=== PATIENT | female | born 1955 | race African-American/Black ===

== ENCOUNTER 2018-04-04 22:20 | Inpatient (IN) | payer MEDICAID ==
[~2018-04-04] VITALS: Ht 160 cm; Wt 70.3 kg
[2018-04-04 22:20] VITALS: BP 119/55
--- NOTE | 2018-04-04 22:20 | NUR ---
PATIENT BIB ALS TO ER BED 7.
[2018-04-04] MEDS ORDERED: NACL 0.9% 1,000 ML IV SCH (22:23)
[2018-04-04] MEDS ORDERED: DILTIAZEM 25 MG/5 ML VIAL IVP ONE (22:35)
--- NOTE | 2018-04-04 22:55 | NUR ---
X-Ray at bedside.
[2018-04-04] MEDS ORDERED: NORMODYNE IV (23:02)
[2018-04-04] MEDS ORDERED: CHLO480L1 PO ×2 (23:02)
[2018-04-04] MEDS ORDERED: [UNRECOGNIZED DRUG - CODE] IC (23:02)
[2018-04-04] MEDS ORDERED: HEPA500056 SQ (23:02)
[2018-04-04] MEDS ORDERED: ONDA4SOL IM/IV (23:02)
[2018-04-04] MEDS ORDERED: [UNRECOGNIZED DRUG - CODE] PEG (23:02)
[2018-04-04] MEDS ORDERED: ALBU3SOL83 IH (23:02)
[2018-04-04] MEDS ORDERED: HUM SUBQ (23:02)
[2018-04-04] MEDS ORDERED: ACET-2619 PO (23:02)
[2018-04-04] MEDS ORDERED: D50SYR IV (23:02)
[2018-04-04] MEDS ORDERED: FAMO-90 PEG (23:02)
[2018-04-04] MEDS ORDERED: LANTUS SUBQ (23:02)
[2018-04-04] MEDS ORDERED: POLY15SO48 OP (23:08)
[2018-04-04] MEDS ORDERED: SULF-59 PO (23:08)
[2018-04-04 23:11] LABS: BASOPHILS % (AUTO) 0.3 % (0.0-2.0); HEMATOCRIT 33.9 % (36-48); LYMPHOCYTES # (AUTO) 1.1 K/uL (2.5-16.5); MEAN CORPUSCULAR HEMOGLOBIN 29 pg (27-31); MEAN CORPUSCULAR HGB CONC 33 g/dL (33-37); MONOCYTES # (AUTO) 1.4 K/uL (0.8-1.0); MONOCYTES % (AUTO) 8.4 % (1.7-9.3); NEUTROPHILS % (AUTO) 84.9 % (42.2-75.2); PLATELET COUNT (AUTO) 252 K/uL (140-450); RED BLOOD CELL COUNT(AUTO) 3.86 MIL/uL (4.20-5.40); RED CELL DISTRIBUTION WIDTH 13.9 % (11.6-13.7)
[2018-04-04 23:30] LABS: LYMPHOCYTES % (AUTO) 6.4 % (20.5-51.1); WHITE BLOOD COUNT (AUTO) 16.5 K/uL (4.8-10.8)
[2018-04-04 23:35] LABS: ALBUMIN 2.3 g/dL (3.4-5.0); ANION GAP 14.7 (8-16); CARBON DIOXIDE 25.8 mmol/L (21-32); CREATININE 1.1 mg/dL (0.6-1.3); POTASSIUM 3.5 mmol/L (3.5-5.1); TOTAL BILIRUBIN 0.5 mg/dL (0.0-1.0)
[2018-04-04 23:51] LABS: CKMB RELATIVE INDEX 0.2 (0.0-2.5); CREATINE KINASE MB 2.8 ng/mL (0-3.6)
--- NOTE | 2018-04-05 00:13 | NUR ---
Patient noted to have existing wounds upon arrival to ER. Photos taken of wound and placed in chart. Wound covered with dressing. Physician informed.
--- NOTE | 2018-04-05 00:13 | NUR ---
UA SENT TO LAB
[2018-04-05] MEDS ORDERED: MORPHINE SULFATE 2 MG/ML SYR IVP PRN (00:15)
[2018-04-05] MEDS ORDERED: ONDANSETRON 4 MG/2 ML VIAL IM/IVP PRN (00:15)
[2018-04-05] MEDS ORDERED: DOCUSATE SODIUM 100 MG GELCAP PO PRN (00:15)
[2018-04-05] MEDS ORDERED: ACETAMINOPHEN 325 MG TAB PO PRN (00:15)
[2018-04-05] MEDS ORDERED: HYDROcodone/APAP 5/325 MG 1 TAB TAB PO PRN (00:15)
[2018-04-05] MEDS ORDERED: PNEUMOCOCCAL VACCINE 23 MCG/0.5 ML VIAL IMVAC SCH (00:20)
[2018-04-05] MEDS ORDERED: INFLUENZA VIRUS VACCINE QUAD 0.5 ML SYR IMVAC PRN (00:20)
[2018-04-05 00:21] LABS: APPEARANCE,URINE CLEAR (CLEAR); BILIRUBIN,URINE NEGATIVE (NEGATIVE); BLOOD, URINE 1+ (NEGATIVE); COLOR,URINE YELLOW (YELLOW); LEUKOCYTE ESTERASE ,URINE NEGATIVE (NEGATIVE); NITRITE, URINE NEGATIVE (NEGATIVE); UGLUCOSE NEGATIVE (NEGATIVE)
[2018-04-05 00:29] LABS: HYALINE CASTS, URINE 0-10 /LPF (None Seen); RBC,URINE 0-5 (RARE) /HPF (0-5); WBC,URINE 0-5 (RARE) /HPF (0-5)
[2018-04-05 00:43] LABS: PROTHROMBIN TIME 9.8 secs (10.8-13.4)
[2018-04-05 00:44] LABS: MAGNESIUM 2.1 mg/dL (1.8-2.4); THYROID STIMULATING HORMONE 1.01 uIU/mL (0.34-3.74)
--- NOTE | 2018-04-05 00:55 | NUR ---
ADMITTED PT FROM ER VIA GURNEY. PT IS APHASIC. NO S/S OF PAIN OR SOB. TRACH COLLAR AT 2L/MIN. BEDBOUND. IV TO LEFT AC #18G, PATENT AND INTACT. G-TUBE IN PLACE. PT HAS RECTAL TUBE. SAFETY PRECAUTION IN PLACE.
[2018-04-05 01:00] VITALS: BP 151/53
--- NOTE | 2018-04-05 01:00 | NUR ---
PT HAS STAGE 2 PRESSURE ULCER TO RIGHT BUTTOCK AND SUTURES TO RIGHT HEAD.
--- NOTE | 2018-04-05 01:00 | NUR ---
REPORT GIVEN AND CARE TRANSFERED TO [facility] ROOM 111B. TRANSFERED VIA [facility] WITH V[facility].
[2018-04-05] MEDS ORDERED: PNEUMOCOCCAL VACCINE 23 MCG/0.5 ML VIAL IMVAC PRN (01:01)
[2018-04-05] MEDS: NACL 0.9% 1,000 ML IV SCH (01:13)
[2018-04-05] MEDS ORDERED: HYDRAGUARD CREAM TP PRN (01:40)
[2018-04-05] MEDS ORDERED: hydrALAZINE 25 MG TAB GT PRN (01:40)
[2018-04-05] MEDS ORDERED: ALTEPLASE IC SCH (01:40)
[2018-04-05] MEDS ORDERED: NIMODIPINE 30 MG PEG SCH (01:40)
[2018-04-05] MEDS ORDERED: DEXTROSE 50% 50 ML SYR IVP PRN (02:00)
--- NOTE | 2018-04-05 03:30 | NUR ---
PT RESTING IN BED WITH EYES CLOSED. NO S/S OF PAIN OR SOB. PT KEPT DRY AND COMFORTABLE.
[2018-04-05 04:00] VITALS: BP 152/55
[2018-04-05] MEDS ORDERED: cefTRIAXone 1,000 MG VIAL ONE (04:41)
--- NOTE | 2018-04-05 05:00 | NUR ---
PT SLEEPING. NO S/S OF PAIN OR SOB. PT KEPT DRY AND COMFORTABLE.
[2018-04-05] MEDS: POLYVINYL ALCOHOL 1.4% OP 15 ML SOL BOTH EYES SCH ×3 (06:00→18:36)
--- NOTE | 2018-04-05 06:05 | NUR ---
PT'S O2 SAT WAS 65. INCREASED 02 TO 5L AND CALLED RT. 3 RTS IN THE ROOM. PT'S O2 SAT 98%.
--- NOTE | 2018-04-05 06:10 | NUR ---
CALLED TO PTS ROOM DUE TO PT DESAT RT MICHI Casas AND RT SUGAR Amos AT BEDSIDE CLEANED TRACH DUE TO MUCUS PLUG AND PTS SAT INCREASED PLACED PT ON CA OF 28% AT 6L THEN INCREASED TO 40% at 10 l sxn pt small amt of pale yellow secretions b\s are clear and i\l tx given with duoneb 3ml with no adverse reaction post tx.
[2018-04-05] MEDS: ALBUTEROL SULFATE/IPRATROPIU 3 ML SOL IH PRN (06:17)
--- NOTE | 2018-04-05 06:20 | NUR ---
PT HAS TRACH TO MIST. NO S/SO OF RESP DISTRESS. PT RESTING IN BED COMFORTABLY.
[2018-04-05] MEDS: FAMOTIDINE 20 MG TAB PEG SCH ×2 (06:39→18:36)
--- NOTE | 2018-04-05 06:40 | NUR ---
G-TUBE RESIDUAL 0 ML. HUNG NEW BOTTLE OF JEVITY 1.2 AT 10 ML/HR. INCREASE 10 ML EVERY HR TO REACH GOAL AT 75ML/HR. H20 FLUSH 50 ML Q4HRS.
--- NOTE | 2018-04-05 06:55 | NUR ---
DR. KING MADE AWARE THAT ARTIFICIAL TEARS NOT AVAILABLE. ALSO MADE AWARE PT HAS NO URINE OUTPUT SINCE ADMISSION. NO NEW ORDER AT THIS TIME.
[2018-04-05] MEDS: BLOOD GLUCOSE MONITORING 1 DEV DEV FS SCH ×4 (06:58→20:27)
[2018-04-05] MEDS: INSULIN LISPRO SLIDING SCALE 100 UNITS/ML VIAL SUBQ PRN (07:00)
[2018-04-05 07:15] LABS: BASOPHILS % (AUTO) 0.2 % (0.0-2.0); HEMATOCRIT 34.5 % (36-48); HEMOGLOBIN 11.1 g/dL (12.0-16.0); LYMPHOCYTES # (AUTO) 0.5 K/uL (2.5-16.5); LYMPHOCYTES % (AUTO) 2.7 % (20.5-51.1); MEAN CORPUSCULAR HEMOGLOBIN 29 pg (27-31); MEAN CORPUSCULAR HGB CONC 32 g/dL (33-37); MEAN CORPUSCULAR VOLUME 88.7 fL (80-94); MONOCYTES # (AUTO) 1.2 K/uL (0.8-1.0); MONOCYTES % (AUTO) 6.5 % (1.7-9.3); NEUTROPHILS # (AUTO) 16.3 K/uL (1.8-7.7); NEUTROPHILS % (AUTO) 90.6 % (42.2-75.2); PLATELET COUNT (AUTO) 244 K/uL (140-450); RED BLOOD CELL COUNT(AUTO) 3.89 MIL/uL (4.20-5.40); RED CELL DISTRIBUTION WIDTH 13.9 % (11.6-13.7); WHITE BLOOD COUNT (AUTO) 17.9 K/uL (4.8-10.8)
--- NOTE | 2018-04-05 07:20 | NUR ---
PT TOLERATING FEEDING WELL. ENDORSED PT TO DAY SHIFT NURSE. PT IN STABLE CONDITION.
--- NOTE | 2018-04-05 07:21 | NUR ---
RECEIVED BEDSIDE REPORT FROM ASSISTANT REFINERY OPERATOR NURSE. PATIENT APHASIC. ON TRACH TO AEROSOL MIST AT 6 L, NO SIGNS OF RESPIRATORY DISTRESS. PATIENT BEDBOUND, TOTAL ASSISTANCE NEEDED. WOUNDS ON R BUTTOCKS OPEN TO AIR AND R FOREHEAD SUTURE FROM PRIOR SURGERY. G TUBE IN PLACE, CLEAN DRY AND INTACT. HEARD SWOOSH AND CHECKED RESIDUAL. JEVITY 1.2 RUNNING AT 10. IV ON L AC 18 G INFUSING NS AT 50, CLEAN DRY AND INTACT. PATIENT ON WOUND CARE BED. FALL RISK PROTOCOL IN PLACE. PATIENT ON TELE, SPO2 MONITOR IN PLACE. BED IN LOW POSITION, CALL LIGHT WITHIN REACH. WILL CONTINUE TO MONITOR.
[2018-04-05 07:25] LABS: ANION GAP 14.3 (8-16); CARBON DIOXIDE 25.7 mmol/L (21-32); CREATININE 0.9 mg/dL (0.6-1.3)
[2018-04-05 08:00] VITALS: BP 173/89
--- NOTE | 2018-04-05 08:07 | NUR ---
PATIENT HAS BEEN SCREENED AND CATEGORIZED HIGH NUTRITION RISK. PATIENT WILL BE SEEN WITHIN 1-2 DAYS OF ADMISSION. 04/05/18-04/06/[address]
[2018-04-05] MEDS: LACTOBACILLUS RHAMNOSUS GG 1 EACH CAP GT SCH (08:53)
[2018-04-05] MEDS: FERROUS SULFATE 300 MG/5 ML UDC GT SCH ×2 (08:53→20:29)
[2018-04-05] MEDS: metFORMIN 500 MG TAB GT SCH ×2 (08:54→18:36)
[2018-04-05] MEDS: LABETALOL 100 MG TAB GT SCH ×2 (08:54→20:29)
[2018-04-05] MEDS: BENAZEPRIL 20 MG TAB GT SCH ×2 (08:54→20:29)
[2018-04-05] MEDS: CHLORHEXIDINE GLUCONATE 0.12% 473 ML LIQ MM SCH ×2 (09:00→20:31)
[2018-04-05] MEDS: INSULIN LANTUS 100 UNITS/ML 10 ML VIAL SUBQ SCH (09:00)
[2018-04-05] MEDS ORDERED: ASPIRIN 81 MG TAB.CHEW GT SCH (09:00)
--- NOTE | 2018-04-05 09:10 | NUR ---
PT TO CT SCAN OF HEAD PLACED ON T-PIECE AT 6L HR 80 O2 SAT 100% THEN BACK TO ROOM PLACED BACK 30% CA
--- NOTE | 2018-04-05 09:11 | NUR ---
PATIENT TAKEN TO HAVE CT SCAN WITHOUT CONTRAST. PATIENT ACCOMPANIED BY RT AND 2 IMAGING TECHS. WILL MONITOR WHEN PATIENT GETS BACK.
--- NOTE | 2018-04-05 10:59 | NUR ---
CHANGED PATIENTS SOILED PADS. PATIENT WAS GIVEN BED BATH. LOTION APPLIED. PATIENT WAS TURNED TO OPPOSITE SIDE. NOW LEFT SIDE LYING POSITION. PATIENT TOLERATED WELL. WILL CONTINUE TO MONITOR.
--- NOTE | 2018-04-05 11:42 | NUR ---
04/05/18 RD INITIAL ASSESSMENT COMPLETED PLEASE REFER TO NUTRITION ASSESSMENT UNDER CARE ACTIVITY FOR ESTIMATED NUTRITIONAL NEEDS. 1. RECOMMEND TUBE FEED DIABETISOURCE @ 70 ML/HR X 24 HOURS - THIS WILL PROVIDE 2016 KCALS AND 100 G PROTEIN. THIS MEETS 100% OF ESTIMATED ENERGY AND PROTEIN NEEDS 2. RECOMMEND FLUSH 110 ML Q6H 3. RECOMMEND VITAMIN C 200 MG BID AND THERAGRAN-M 4. RD TO FOLLOW-UP 2-3 DAYS, HIGH RISK TREVOR SRINIVAS[address] RD
[2018-04-05] MEDS ORDERED: DOCUSATE 100 MG/10 ML UDC GT PRN (11:50)
[2018-04-05 12:00] VITALS: BP 185/84
[2018-04-05] MEDS: ACETAMINOPHEN 650 MG/20.3 ML UDC GT PRN ×2 (12:03→20:29)
[2018-04-05] MEDS: CLINDAMYCIN PHOS 600MG/D5W PM 50 ML IV SCH ×2 (12:03→20:31)
--- NOTE | 2018-04-05 12:26 | NUR ---
ADMINISTERED PRN TYLENOL AND HYDRALAZINE FOR TEMP OF 101.4 AND BP OF 185/84. PATIENT TOLERATED WELL. WILL RECHECK VITALS.
[2018-04-05] MEDS ORDERED: ROC2I IV (12:55)
[2018-04-05] MEDS ORDERED: CLIN600P4 IV (12:58)
[2018-04-05] MEDS: HYDRAGUARD CREAM TP SCH (13:00)
--- NOTE | 2018-04-05 13:11 | NUR ---
RECEIVED ORDER FOR TRANSFER TO [facility]. FAXED INQUIRY TO [facility], [phone] PHONE [phone].
--- NOTE | 2018-04-05 15:01 | NUR ---
RECEIVED CALL EARLIER THAT THEY ARE REVIEWING THE INFORMATION. I GAVE ALVARO FROM [facility] THE PHONE NUMBER TO THE FLOOR AND THE PHONE NUMBER TO DR. DE SANTIAGO.
--- NOTE | 2018-04-05 15:13 | NUR ---
SPOKE WITH DR. GUTIERREZ SHE SAID THAT DR. DE SANTIAGO SPOKE WITH THE DONNA AT [facility]. NO TRANSFER NEEDED. PATIENT DOES HAVE A FOLLOW UP APPOINTMENT ON THE OF THIS MONTH. TRANSFER TO [facility] CANCELED.
--- NOTE | 2018-04-05 15:30 | NUR ---
WENT TO SXN PT FOR C&S AND MOTHER IS AT BEDSIDE AND WANTED PT TO REST FOR NOW I TOLD HER I OR NOC RT WOULD COME AND SXN HER LATER. SHE SAID ALRIGHT.
[2018-04-05 16:00] VITALS: BP 180/72
--- NOTE | 2018-04-05 19:30 | NUR ---
RECEIVED BEDSIDE REPORT FROM DAY SHIFT RN, PATIENT IN BED, ON TRAC TO AEROSOL MASK AT 6 L/MIN, PATIENT IS APHASIC UNABLE TO FOLLOW COMMANDS, UNABLE TO MOVE, GTUBE INFUSING JEVITY 1.2 AT 60 ML/HR. IV IN LEFT AC 18 G INFUSING NS AT 50, NOTED RECTAL TUBE IN PLACE. CALL LIGHT WITHIN REACH, WILL GIVE DUE MEDICATIONS.
--- NOTE | 2018-04-05 19:30 | NUR ---
GAVE BEDSIDE REPORT TO WIND FIELD MANAGER NURSE. PATIENT ENDORSED IN STABLE CONDITION.
[2018-04-05 20:00] VITALS: BP 200/88
--- NOTE | 2018-04-05 20:08 | NUR ---
BP 200/88 HR 107-112, SPOKE WITH DR MONTERO. ORDER FOR HYDRALAZINE IVP. WILL ADMINISTER ACCORDING TO ORDER. Addendum: 04/06/18 at 0354 by Brianda Haines RN DR ALANIZ.
--- NOTE | 2018-04-05 20:21 | NUR ---
SPUTUM SAMPLE COLLECTED BRIGHT RED BLOOD NOTED.
--- NOTE | 2018-04-05 20:29 | NUR ---
PATIENT HAS FEVER 103.1 MEDICATED WITH TYLENOL ACCORDING TO ORDER.
[2018-04-05] MEDS: ASCORBIC ACID 500 MG/5 ML ORASYR GT SCH (20:30)
--- NOTE | 2018-04-05 20:35 | NUR ---
SX PT TO COLLECT SPUTUM AND SEND TO THE LAB. SUCTION LARGE BLOODY SECRETION
--- NOTE | 2018-04-05 20:43 | NUR ---
NOTIFIED DR MONTERO REGARDING DARK RED SPUTUM COLLECTED.
[2018-04-05] MEDS ORDERED: hydrALAZINE 20 MG/ML VIAL IVP SCH (21:00)
--- NOTE | 2018-04-05 21:24 | NUR ---
REASSESSED BP 165/80 HR 105 WILL CONTINUE TO MONITOR.
--- NOTE | 2018-04-05 22:45 | NUR ---
REPOSITIONED PATIENT, NOTED SACRAL WOUND, WILL CONTINUE TO MONITOR.
[2018-04-06] VITALS (9 sets, daily range): BP systolic 138–226; BP diastolic 51–95
[2018-04-06] MEDS: POLYVINYL ALCOHOL 1.4% OP 15 ML SOL BOTH EYES SCH ×2 (00:33→05:00)
[2018-04-06] MEDS: HYDRAGUARD CREAM TP SCH ×2 (00:34→12:53)
[2018-04-06] MEDS: NACL 0.9% 1,000 ML IV SCH (00:34)
--- NOTE | 2018-04-06 00:35 | NUR ---
V/S TAKEN NOTED BP 175/67 HR 106 WILL CONTINUE TO MONITOR. R/T NOTED WOUND UNDER TRACHEOSTOMY. WILL TAKE PICTURE.
--- NOTE | 2018-04-06 03:52 | NUR ---
V/S TAKEN NOTED BP 170/80 HR 112. TUBE FEEDINGS CHANGED, INFUSING AT 75 ML/HR, NO RESIDUALS NOTED. PICTURE OF TRACHEOTOMY WOUND TAKEN, WOUND CLEANSED WITH NS, PAT DRY, AND PLACED GAUZED, DR ALANIZ.
[2018-04-06] MEDS: CLINDAMYCIN PHOS 600MG/D5W PM 50 ML IV SCH ×2 (05:00→12:52)
--- NOTE | 2018-04-06 05:00 | NUR ---
PATIENT REPOSITIONED FOR COMFORT, WILL CONTINUE TO MONITOR.
--- NOTE | 2018-04-06 06:12 | NUR ---
BLOOD GLUCOSE 196 WILL MEDICATE ACCORDING TO MD ORDER.
[2018-04-06] MEDS: FAMOTIDINE 20 MG TAB PEG SCH ×2 (06:28→17:04)
[2018-04-06] MEDS: BLOOD GLUCOSE MONITORING 1 DEV DEV FS SCH ×3 (06:29→17:00)
[2018-04-06] MEDS: INSULIN LISPRO SLIDING SCALE 100 UNITS/ML VIAL SUBQ PRN ×3 (06:29→17:26)
[2018-04-06 06:35] LABS: CHOL/HDL RATIO 2.6 (1-4.5)
--- NOTE | 2018-04-06 07:34 | NUR ---
ENDORSED PATIENT TO DAY SHIFT NURSE.
--- NOTE | 2018-04-06 07:36 | NUR ---
RECEIVED BEDSIDE REPORT FROM HYSTER MACHINE OPERATOR RN. PATIENT IN BED, ON TRAC TO AEROSOL MASK AT 6 L/MIN, PATIENT IS APHASIC UNABLE TO FOLLOW COMMANDS, UNABLE TO MOVE, G-TUBE INFUSING JEVITY 1.2 AT 75 ML/HR. IV IN LEFT AC 18 G INFUSING NS AT 50, NOTED RECTAL TUBE IN PLACE. CALL LIGHT WITHIN REACH, WILL GIVE DUE MEDICATIONS.
[2018-04-06 08:25] LABS: FOLIC ACID 12.8 ng/mL (>3.0)
[2018-04-06] MEDS ORDERED: ATORVASTATIN 20 MG TAB PO SCH (09:00)
[2018-04-06] MEDS ORDERED: hydrALAZINE 25 MG TAB GT SCH (09:06)
[2018-04-06] MEDS: METOPROLOL 5 MG/5 ML VIAL IV PRN ×2 (09:07→15:28)
[2018-04-06] MEDS ORDERED: hydrALAZINE 20 MG/ML VIAL IVP SCH (09:30)
--- NOTE | 2018-04-06 09:40 | NUR ---
NOTIFIED OF PT ELEVATED BP. WILL GIVE BP MEDS TO LOWER BP PER DR'S ORDERS.
[2018-04-06] MEDS: FERROUS SULFATE 300 MG/5 ML UDC GT SCH (09:41)
[2018-04-06] MEDS: LABETALOL 100 MG TAB GT SCH (09:42)
[2018-04-06] MEDS: LACTOBACILLUS RHAMNOSUS GG 1 EACH CAP GT SCH (09:42)
[2018-04-06] MEDS: metFORMIN 500 MG TAB GT SCH ×2 (09:43→17:04)
[2018-04-06] MEDS: BENAZEPRIL 20 MG TAB GT SCH (09:43)
[2018-04-06] MEDS: ASCORBIC ACID 500 MG/5 ML ORASYR GT SCH (09:44)
[2018-04-06] MEDS: INSULIN LANTUS 100 UNITS/ML 10 ML VIAL SUBQ SCH (09:46)
[2018-04-06] MEDS: ACETAMINOPHEN 650 MG/20.3 ML UDC GT PRN ×2 (09:47→17:27)
--- NOTE | 2018-04-06 09:47 | NUR ---
PT RUNNING A FEVER OF 101.9. COOLING MEASURES IN PLACE AND TYLENOL GIVEN. WILL REASSESS FOR MED EFFECTIVENESS
[2018-04-06 11:12] LABS: BASOPHILS % (AUTO) 0.1 % (0.0-2.0); HEMATOCRIT 32.9 % (36-48); HEMOGLOBIN 10.6 g/dL (12.0-16.0); LYMPHOCYTES # (AUTO) 1.2 K/uL (2.5-16.5); LYMPHOCYTES % (AUTO) 10.5 % (20.5-51.1); MEAN CORPUSCULAR HEMOGLOBIN 29 pg (27-31); MEAN CORPUSCULAR HGB CONC 32 g/dL (33-37); MEAN CORPUSCULAR VOLUME 88.6 fL (80-94); MONOCYTES % (AUTO) 8.5 % (1.7-9.3); NEUTROPHILS # (AUTO) 9.3 K/uL (1.8-7.7); NEUTROPHILS % (AUTO) 80.9 % (42.2-75.2); PLATELET COUNT (AUTO) 222 K/uL (140-450); RED BLOOD CELL COUNT(AUTO) 3.72 MIL/uL (4.20-5.40); WHITE BLOOD COUNT (AUTO) 11.5 K/uL (4.8-10.8)
[2018-04-06] MEDS ORDERED: LABETALOL 200 MG TAB PO SCH (11:15)
[2018-04-06] MEDS: CHLORHEXIDINE GLUCONATE 0.12% 473 ML LIQ MM SCH (11:25)
[2018-04-06 11:37] LABS: ANION GAP 8.3 (8-16); CARBON DIOXIDE 23.3 mmol/L (21-32); CREATININE 1.1 mg/dL (0.6-1.3); POTASSIUM 3.6 mmol/L (3.5-5.1)
--- NOTE | 2018-04-06 11:40 | NUR ---
ENDORSED PT TO ICU FOR CONTINUITY OF CARE. PT TRANSFERED FOR ELEVATED BP AND NEED FOR HIGHER LEVEL OF CARE.
[2018-04-06 11:41] LABS: MAGNESIUM 2.2 mg/dL (1.8-2.4); PHOSPHORUS 2.2 mg/dL (2.5-4.9)
--- NOTE | 2018-04-06 11:58 | NUR ---
TRANSFERRED PATIENT TO ICU-5 REMOVED FROM COOL AEROSOL AT 40%/10 LPM AND PLACED ON SUPPLEMENTAL OXYGEN AT 6 LPM VIA E-TANK SATURATION 100% HR 101 TOLERATED TRANSFER WELL WITHOUT INCIDENT
--- NOTE | 2018-04-06 12:03 | NUR ---
CM NOTE RECEIVED ORDER FOR TRANSFER FOR HIGHER LEVEL OF CARE. SPOKE WITH ATTENDING PHYSICIAN DR. DE SANTIAGO WHO STATED THAT PATIENT IS MORE LETHARGIC TODAY AND NEEDS TRANSFER FOR HIGHER LEVEL OF CARE. SPOKE WITH WE[facility] OF [facility] PH# [phone] REGARDING THE ORDER FOR HIGHER LEVEL OF CARE AND SHE REQUESTED FOR FACESHEET AND CLINICAL PACKET BE FAXED TO HER. FAXED FACESHEET AND CLINICAL INFORMATION TO [facility] [phone]. PER WEST, DR. GONZÁLES THEIR NEUROSURGEON, CANNOT TAKE PATIENT AND SHE CANNOT GET A NEUROSURGEON TO ACCEPT THE PATIENT BECAUSE THERE HAS TO BE CONTINUITY OF CARE SINCE PATIENT'S MOST RECENT SURGERY WAS DONE AT [facility] PATIENT HAS TO BE SEEN IN [place]. SPOKE WITH ANA OF [facility] PH# [phone] REGARDING THE ORDER FOR HIGHER LEVEL OF CARE AND GAVE HER AN UPDATE ABOUT PATIENT'S CURRENT STATUS. SHE REQUESTED FOR FACESHEET AND CLINICAL PACKET BE FAXED TO HER. FAXED FACESHEET AND CLINICAL PACKET TO [place] [phone]. PER ANA SHE CALLED OUR ATTENDING RESIDENT DR. GUTIERREZ REGARDING AN INQUIRY AND IS WAITING TO HEAR BACK FROM HER. SPOKE WITH RUBENS OF [facility] PH# [phone] AND SHE FAXED US OVER [employer] TRANSFER AGREEMENT PACKET. RUBENS REQUESTED FOR THE FACESHEET, CLINICAL PACKET AND [facility] BE [facility] TO HER. FAXED NATALIE THE REQUESTED INFORMATION [phone].
--- NOTE | 2018-04-06 12:12 | NUR ---
PLACED PATIENT BACK ON A COOL AEROSOL TO TRACH AT 40%/10 LPM
--- NOTE | 2018-04-06 12:13 | NUR ---
RECEIVED PATIENT FROM TELEMETRY, EYES OPEN SPONTANEOUSLY BUT NO TRACKING, WITHDRAWS TO PAIN, NO VERBAL OUTPUT, BOTH PUPILS SLUGGISH 2-3MM, SINUS IN MONITOR 99BPM, WITH TRACHEOSTOMY WITH STOMA A BIT EXTENDING INFERIORLY TOWARDS THE CHEST, ON TRACHEAL MASK FIO2 405 SO2 96%, RONCHI ON ALL LOBES ANTERIOR CHEST, WITH PEG TUBE CONNECTED TO JEVITY 75 ML/HR, CHECKED RESIDUAL 40 ML DARK CREAM COLORED, WITH OLD SUTURE AT RIGHT SIDE OF HEAD, SKIN PEEL SACRAL AREA, GENERALIZED NON PITTING EDEMA, GAUGE 18 PERIPHERAL LINE AT LEFT AC WITH NORMAL SALINE INFUSING
[2018-04-06] MEDS: ALBUTEROL SULFATE/IPRATROPIU 3 ML SOL IH PRN (12:24)
--- NOTE | 2018-04-06 12:24 | NUR ---
SATURATION 100% ON SUPPLEMENTAL OXYGEN AT 40%/10 LPM VIA COOL AEROSOL POST HHN THERAPY AND TRACH CARE TITRATED FIO2 TO 30%/7 LPM DOON/RN NOTIFIED
[2018-04-06] MEDS ORDERED: POLYVINYL ALCOHOL 1.4% OP 15 ML SOL BOTH EYES SCH (12:36)
[2018-04-06] MEDS: hydrALAZINE 25 MG TAB GT SCH ×2 (12:43→17:04)
[2018-04-06] MEDS ORDERED: LEVE1000 IV (13:44)
[2018-04-06] MEDS ORDERED: levETIRAcetam 1,000 MG in NACL 0.9% 100 ML IV SCH ×2 (14:00→21:00)
--- NOTE | 2018-04-06 14:15 | NUR ---
CM NOTE PER ANA OF [facility]# [phone], DR. RICHARDS, THEIR NEUROSURGEON, HAS ACCEPTED THE PATIENT, WAITING FOR BED AVAILABILITY. I GAVE ANA THE NUMBER TO THE NURSING STATION WHERE PATIENT IS IN CASE A BED BECOMES AVAILABLE AT A LATER TIME TODAY. CHARGE NURSE EDDIE ESCOTO.
[2018-04-06] MEDS ORDERED: Hydraguard TP ×2 (14:21→14:26)
[2018-04-06] MEDS ORDERED: TRA100 GT (14:21)
[2018-04-06] MEDS ORDERED: HYDR-4420 GT (14:21)
[2018-04-06] MEDS ORDERED: BENA20TA88 GT (14:24)
[2018-04-06] MEDS ORDERED: METF500T GT (14:26)
[2018-04-06] MEDS ORDERED: METO1SOL22 IV (14:26)
--- NOTE | 2018-04-06 14:54 | NUR ---
SATURATION 100% ON A COOL AEROSOL TO TRACH AT 30%/7 LPM TITRATED FIO2 TO 28%/6 LPM ANJELICA/RN NOTIFIED
--- NOTE | 2018-04-06 16:35 | NUR ---
PM CARE/ SPONGE BATH DONE, LINENS CHANGED, ORACL CARE, PERINEAL CARE DONE AND ROUTINE REPOSITIONING DONE
--- NOTE | 2018-04-06 18:49 | NUR ---
REPORT GIVEN TO [facility] OF [facility] INCLUDING PATIENT'S NEXT OF KIN NUMBER
--- NOTE | 2018-04-06 19:35 | NUR ---
AICHA DEJESUS RN AM SHIFT , PT WILL TRANSFER TO [facility] FOR FURTHER CARE. SHE ALREADY GIVE REPORT TO CLARI.AICHA DEJESUS [facility] WILL COME TO PIPE INSTALLER AT 1945..PT IS OPEN EYES. NOT FOLLOWING COMMANDS. NO S/S OF RESP DISTRESS, NO SOB. PT TRACH TO T.BAR WITH O2 28% TOLERATING WELL. RESP EVEN UN LABOR. HOB UP 30-[address] , ABD SOFT NON DISTENDED. PICS WAS TAKEN BY AM SHIFT. NOTED SUTURE INTACT TO TOP OF HEAD AND REDNESS BILATERAL BUTTOCK,RECTAL TUBE INPLACE.V/S T 99.2,P 91,B/P 143/58 SPO2 95%.PT IS CLEAN AND DRY.
--- NOTE | 2018-04-06 19:42 | NUR ---
REPORT GIVEN TO NIGHT RN. PICTURES TAKEN TO ALL WOUNDS, MRSA AT DISCHARGE SENT TO LABORATORY WITH ORDER PER DR. OLIVERA
--- NOTE | 2018-04-06 20:00 | NUR ---
THE [facility] COME TO ASSOCIATE PROFESSOR OF ART PT AT 1945, [facility] PERSONAL [facility]. REPORT GIVEN TO [facility] STAFF MAKE AWARE PT IS GOING TO [facility] FOR FURTHER CARE WITH ROOM NO 1204-1. REPORT WAS GIVEN BY AM SHIFT TO CLARI [phone] EXT 1200. PT LEFT THE FACILITY AT 1999 [facility] [facility] WITH [facility].BELONGING GIVEN TO [facility] STAFF.
[2018-04-06] MEDS ORDERED: LABETALOL 100 MG TAB GT SCH (21:00)
--- NOTE | 2018-04-07 15:04 | NUR ---
WOUND CARE NOT DONE. PT. DISCHARGED. Addendum: 04/07/18 at 1505 by Fabian Crockett RN (Grace) WOUND CARE EVALUATION NOT DONE. PT. DISCHARGED
== END 2018-04-06 20:00 | disposition short-term general hospital (02) | DRG 720 ==
LOC: MED 22:20 → MTU 04-05 00:18 → MIC 04-06 12:09
PROVIDERS: ADMIT General Practice; ATTEND General Practice
DX: A41.9 Sepsis, unspecified organism (principal); I21.4 Non-ST elevation (NSTEMI) myocardial infarction; N17.0 Acute kidney failure with tubular necrosis; I61.9 Nontraumatic intracerebral hemorrhage, unspecified; E43 Unspecified severe protein-calorie malnutrition; G91.9 Hydrocephalus, unspecified; J96.10 Chronic respiratory failure, unspecified whether with hypoxia or hypercapnia; G93.1 Anoxic brain damage, not elsewhere classified; I48.91 Unspecified atrial fibrillation; I50.43 Acute on chronic combined systolic (congestive) and diastolic (congestive) heart failure; N39.0 Urinary tract infection, site not specified; E86.0 Dehydration; K21.9 Gastro-esophageal reflux disease without esophagitis; D64.9 Anemia, unspecified; R13.10 Dysphagia, unspecified; L89.319 Pressure ulcer of right buttock, unspecified stage; L89.159 Pressure ulcer of sacral region, unspecified stage; R65.20 Severe sepsis without septic shock; E11.51 Type 2 diabetes mellitus with diabetic peripheral angiopathy without gangrene; I11.9 Hypertensive heart disease without heart failure; E66.09 Other obesity due to excess calories; Z86.73 Personal history of transient ischemic attack (TIA), and cerebral infarction without residual deficits; Z93.0 Tracheostomy status; Z68.27 Body mass index [BMI] 27.0-27.9, adult; Z79.4 Long term (current) use of insulin; Z79.899 Other long term (current) drug therapy; Z93.1 Gastrostomy status; Z74.01 Bed confinement status; Z87.891 Personal history of nicotine dependence
CPT/HCPCS: 36415; 70450; 71045; 80048; 80053; 81001; 82550; 82553; 82607; 82728; 82746; 82948; 83036; 83540; 83605; 83690; 83735; 83880; 84100; 84443; 84484; 85025; 85045; 85610; 85730; 87040; 87070; 87081; 87086; 87186; 87205; 93005; 94640; 96374; 99285; A4330; C1758; J0360; J0696; J1815; J1953; J3490; J7030; J7060; J7620; Q0092